=== PATIENT | female | born 1950 | race Caucasian/White ===

== ENCOUNTER 2018-12-16 09:47 | Emergency (ER) | payer MEDICARE ==
--- NOTE | 2018-12-16 11:31 | ER ---
Nurse's Notes [facility] Name: Stephanie Galan Age: 68 yrs Sex: Female : 1950 Arrival Date: 12/16/2018 Time: 09:50 Bed 5 Private MD: Diagnosis: Other chest pain-chest wall pain Presentation: 12/16 10:05 Presenting complaint: Patient states: R RIB PAIN x 6 DAYS, S/P MASSAGE. Transition of bp care: patient was not received from another setting of care. Onset of symptoms is unknown. Risk Assessment: Do you want to hurt yourself or someone else? Patient reports no desire to harm self or others. Initial Sepsis Screen: Does the patient meet any 2 criteria? No. Patient's initial sepsis screen is negative. Does the patient have a suspected source of infection? No. Patient's initial sepsis screen is negative. Care prior to arrival: None. 10:05 Method Of Arrival: Ambulatory bp 10:05 Acuity: RASHID 4 bp Triage Assessment: 10:07 General: Appears in no apparent distress. comfortable, Behavior is cooperative, bp appropriate for age, anxious. Pain: Complains of pain in right lateral posterior chest. EENT: No deficits noted. Neuro: No deficits noted. Cardiovascular: No deficits noted. Respiratory: No deficits noted. GI: No signs and/or symptoms were reported involving the gastrointestinal system. : No signs and/or symptoms were reported regarding the genitourinary system. Derm: No deficits noted. Musculoskeletal: No deficits noted. Historical: - Allergies: 10:07 Ibuprofen; bp 10:07 Amoxicillin; bp 10:07 Erythromycin; bp 10:07 Vicodin; bp - Home Meds: 10:07 Proventil Inhl [Active]; Advair Diskus 100-50 mcg/dose Inhl dsdv 1 puff 2 times per day bp [Active]; pantoprazole oral oral [Active]; - PMHx: 10:07 Asthma; GERD; bp - Immunization history:: Adult Immunizations up to date. - Social history:: Smoking status: Patient/guardian denies using tobacco. - Ebola Screening: : No symptoms or risks identified at this time. Screenin:09 Abuse screen: Denies threats or abuse. Denies injuries from another. Nutritional bp screening: No deficits noted. Tuberculosis screening: No symptoms or risk factors identified. Fall Risk None identified. Assessment: 10:09 General: SEE TRIAGE NOTE. bp 11:41 Reassessment: PT D/C HOME AMBULATORY WITH FAMILY, DX WITH COSTOCHONDRITIS. bp Vital Signs: 10:07 BP 141 / 75; Pulse 72; Resp 17; Temp 97.5; Pulse Ox 97% ; Weight 72.57 kg; Height 4 ft. bp 11 in. (149.86 cm); 11:42 BP 139 / 75; Pulse 75; Resp 16; Temp 97.5; Pulse Ox 97% ; bp 10:07 Body Mass Index 32.32 (72.57 kg, 149.86 cm) bp ED Course: 09:50 Patient arrived in ED. rg4 09:54 Dillan Hernandez, RN is Primary Nurse. bp 10:00 Cris Prajapati FNP-C is PHCP. kb 10:00 Fermin Ly MD is Attending Physician. kb 10:06 Triage completed. bp 10:07 Arm band placed on. bp 10:09 Patient has correct armband on for positive identification. Placed in gown. Bed in low bp position. Call light in reach. Side rails up X2. Adult w/ patient. 10:49 Chest Pa And Lat (2 Views) XRAY In Process Unspecified. EDMS 11:42 No provider procedures requiring assistance completed. Patient did not have IV access bp during this emergency room visit. Administered Medications: No medications were administered Outcome: 11:30 Discharge ordered by MD. kb 11:42 Discharged to home ambulatory, with family. bp 11:42 Condition: stable 11:42 Discharge instructions given to patient, Instructed on discharge instructions, follow up and referral plans. medication usage, Demonstrated understanding of instructions, follow-up care, medications, Prescriptions given X 1. 11:43 Patient left the ED. bp Signatures: Dispatcher [employer] EDMS Cris Prajapati FNP-C FNP-Ckb Garcia, Rubi rg4 Dillan Hernandez, RN RN bp
--- NOTE | 2018-12-16 11:31 | EDPHYS ---
Physician Documentation [facility] Name: Stephanie Galan Age: 68 yrs Sex: Female : 1950 Arrival Date: 12/16/2018 Time: 09:50 Bed 5 Private MD: ED Physician Fermin Ly HPI: 12/16 10:49 This 68 yrs old Female presents to ER via Ambulatory with complaints of Rib kb Pain. 10:55 The patient or guardian reports chest pain that is located primarily in the right kb lateral posterior chest and right lateral anterior chest. Onset: The symptoms/episode began/occurred 1 week(s) ago. The pain does not radiate. Associated signs and symptoms: The patient has no apparent associated signs or symptoms. The chest pain is described as aching. Duration: The patient or guardian reports a single episode. Modifying factors: the symptoms are aggravated by movement, palpation of area. Severity of pain: At its worst the pain was moderate in the emergency department the pain is unchanged. The patient has not experienced similar symptoms in the past. The patient has not recently seen a physician. Pt reports right lateral chest pain after receiving a massage a week ago. STates she had pain right after the massage and it has just persisted since then. Reports it pulls around with ribs. . Historical: - Allergies: 10:07 Ibuprofen; bp 10:07 Amoxicillin; bp 10:07 Erythromycin; bp 10:07 Vicodin; bp - Home Meds: 10:07 Proventil Inhl [Active]; Advair Diskus 100-50 mcg/dose Inhl dsdv 1 puff 2 times per day bp [Active]; pantoprazole oral oral [Active]; - PMHx: 10:07 Asthma; GERD; bp - Immunization history:: Adult Immunizations up to date. - Social history:: Smoking status: Patient/guardian denies using tobacco. - Ebola Screening: : No symptoms or risks identified at this time. ROS: 11:00 Constitutional: Negative for fever, chills, and weight loss, ENT: Negative for injury, kb pain, and discharge, Neck: Negative for injury, pain, and swelling, Respiratory: Negative for shortness of breath, cough, wheezing, and pleuritic chest pain, Abdomen/GI: Negative for abdominal pain, nausea, vomiting, diarrhea, and constipation, Back: Negative for injury and pain, MS/Extremity: Negative for injury and deformity, Skin: Negative for injury, rash, and discoloration, Neuro: Negative for headache, weakness, numbness, tingling, and seizure. 11:00 Cardiovascular: Positive for chest pain, Negative for edema, orthopnea, palpitations, paroxysmal nocturnal dyspnea. Exam: 10:59 Constitutional: This is a well developed, well nourished patient who is awake, alert, kb and in no acute distress. Head/Face: Normocephalic, atraumatic. Neck: Trachea midline, no thyromegaly or masses palpated, and no cervical lymphadenopathy. Supple, full range of motion without nuchal rigidity, or vertebral point tenderness. No Meningismus. Cardiovascular: Regular rate and rhythm with a normal S1 and S2. No gallops, murmurs, or rubs. Normal PMI, no JVD. No pulse deficits. Respiratory: Lungs have equal breath sounds bilaterally, clear to auscultation and percussion. No rales, rhonchi or wheezes noted. No increased work of breathing, no retractions or nasal flaring. Abdomen/GI: Soft, non-tender, with normal bowel sounds. No distension or tympany. No guarding or rebound. No evidence of tenderness throughout. Skin: Warm, dry with normal turgor. Normal color with no rashes, no lesions, and no evidence of cellulitis. MS/ Extremity: Pulses equal, no cyanosis. Neurovascular intact. Full, normal range of motion. Neuro: Awake and alert, GCS 15, oriented to person, place, time, and situation. Cranial nerves II-XII grossly intact. Motor strength 5/5 in all extremities. Sensory grossly intact. Cerebellar exam normal. Normal gait. 10:59 Chest/axilla: Inspection: normal, Palpation: tenderness, that is mild, that is moderate, of the right lateral anterior chest and right lateral posterior chest, that totally reproduces the patient's complaints, Axilla: are normal. Vital Signs: 10:07 BP 141 / 75; Pulse 72; Resp 17; Temp 97.5; Pulse Ox 97% ; Weight 72.57 kg; Height 4 ft. bp 11 in. (149.86 cm); 11:42 BP 139 / 75; Pulse 75; Resp 16; Temp 97.5; Pulse Ox 97% ; bp 10:07 Body Mass Index 32.32 (72.57 kg, 149.86 cm) bp MDM: 10:00 Patient medically screened. kb 10:59 Data reviewed: vital signs, nurses notes. Data interpreted: Pulse oximetry: on room air kb is 97 %. Interpretation: normal. 11:30 Counseling: I had a detailed discussion with the patient and/or guardian regarding: the kb historical points, exam findings, and any diagnostic results supporting the discharge/admit diagnosis, radiology results, the need for outpatient follow up, a family practitioner, to return to the emergency department if symptoms worsen or persist or if there are any questions or concerns that arise at home. 12/16 10:03 Order name: Chest Pa And Lat (2 Views) XRAY kb Administered Medications: No medications were administered Disposition: 14:01 Co-signature as Attending Physician, Fermin Ly MD. rn Disposition: 12/16/18 11:30 Discharged to Home. Impression: Other chest pain - chest wall pain. - Condition is Stable. - Discharge Instructions: Costochondritis, [id number], Chest Wall Pain, [id number]. - Prescriptions for Skelaxin 800 mg Oral Tablet - take 1 tablet by ORAL route every 8 hours As needed; 30 tablet. - Medication Reconciliation Form, Thank You Letter, Antibiotic Education, Prescription Opioid Use form. - Follow up: Emergency Department; When: As needed; Reason: Worsening of condition. Follow up: Private Physician; When: 2 - 3 days; Reason: Recheck today's complaints, Continuance of care, Re-evaluation by your physician. Signatures: Dispatcher [employer] EDLA Cris Prajapati, CONTROL OFFICER MANAGER-C CONTROL OFFICER MANAGER-Ckb Fermin Ly MD MD rn Peltier, Brian, RN RN bp Corrections: (The following items were deleted from the chart) 11:43 11:30 12/16/2018 11:30 Discharged to Home. Impression: Other chest pain - chest wall bp pain. Condition is Stable. Forms are Medication Reconciliation Form, Thank You Letter, Antibiotic Education, Prescription Opioid Use. Follow up: Emergency Department; When: As needed; Reason: Worsening of condition. Follow up: Private Physician; When: 2 - 3 days; Reason: Recheck today's complaints, Continuance of care, Re-evaluation by your physician. kb
[2018-12-16 11:55] VITALS: TEMP 97.5; O2SAT 97
[2018-12-16 11:56] VITALS: BP 139/75
--- NOTE | 2018-12-16 12:16 | RAD REPORT ---
EXAM DESCRIPTION: Meagan Trivedi (2 Views)12/16/2018 10:51 am CLINICAL HISTORY: Chest pain COMPARISON: none FINDINGS: The lungs appear clear of acute infiltrate. The heart is normal size Small hiatal hernia IMPRESSION: No acute abnormalities displayed
== END 2018-12-16 11:43 | disposition home or self-care (01) ==
LOC: ER 09:47
DX: R07.89 Other chest pain (principal); J45.909 Unspecified asthma, uncomplicated; K21.9 Gastro-esophageal reflux disease without esophagitis; Z88.1 Allergy status to other antibiotic agents; Z88.6 Allergy status to analgesic agent
CPT/HCPCS: 71046; 99283